=== PATIENT | male | born 1940 | race Hispanic/Latino ===

== ENCOUNTER 2016-12-22 11:24 | Emergency (ER) | payer MEDICARE ==
[~2016-12-22] VITALS: Ht 188 cm; Wt 114.9 kg
[2016-12-22] MEDS ORDERED: ASPI81TA85 PO (11:33)
[2016-12-22] MEDS ORDERED: ASPIRIN 81 MG CHEW TABLET PO ONE (12:00)
[2016-12-22] MEDS ORDERED: NITROGLYCERIN 0.4 MG SUBL TABLET SL PRN (12:00)
[2016-12-22 12:02] LABS: BASO % 0.4 % (0.0-1.0); EOS # 0.4 K/mm3 (0.0-0.50); EOS % 6.4 % (0.0-3.0); LARGE UNSTAINED CELL # 0.2 K/mm3 (0.0-0.4); LYMPH # 1.6 K/mm3 (1.5-4.5); LYMPH % 24.4 % (24.0-44.0); MEAN CORPUSCULAR HEMOGLOBIN 27.5 pg (27.0-33.0); MEAN CORPUSCULAR VOLUME 85.7 fl (80.0-96.0); MONO # 0.5 K/mm3 (0.0-0.8); MONO % 8.5 % (0.0-5.0); NEUTROPHILS # 3.3 K/mm3 (1.8-7.7); NEUTROPHILS % 57.3 % (36.0-66.0); PLATELET COUNT, AUTOMATED 221 k/mm3 (150-450); RED CELL DISTRIBUTION WIDTH 13.9 % (11.5-14.5); WHITE BLOOD COUNT 5.7 K/mm3 (4.0-10.0)
[2016-12-22 12:15] VITALS: BP 136/78
[2016-12-22 12:27] LABS: ANION GAP 5 MEQ/L (8-16); BLOOD UREA NITROGEN 13 MG/DL (7-18); CALCIUM LEVEL 8.6 MG/DL (8.8-10.2); CARBON DIOXIDE LEVEL 30 MEQ/L (21-32); CHLORIDE LEVEL 105 MEQ/L (98-107); CREATININE FOR GFR 1.12 MG/DL (0.70-1.30); GLOMERULAR FILTRATION RATE > 60.0 (>42); GLUCOSE, FASTING 84 MG/DL (83-110); POTASSIUM SERUM 4.3 MEQ/L (3.5-5.1); SODIUM LEVEL 140 MEQ/L (136-145)
--- NOTE | 2016-12-22 14:30 | REP ---
PORTABLE CHEST: AP portable view of the chest is performed. There are no prior studies. There is significant cardiomegaly. There is mild calcification and ectasia of the thoracic aorta. No acute infiltrate is seen. IMPRESSION: Significant cardiomegaly. No acute infiltrate. Signed by Gomez Pop MD 12/22/2016 03:23 P
[2016-12-22] MEDS ORDERED: ACETAMINOPHEN 325 MG TAB PO ONE (18:00)
[2016-12-22] MEDS ORDERED: ACETAMINOPHEN TAB 650MG DOSE (2X325MG) PO ONE (18:15)
[2016-12-22 19:02] VITALS: BP 136/69
--- NOTE | 2016-12-22 20:07 | ECGEPIP ---
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
--- NOTE | 2016-12-22 20:11 | ECGEPIP ---
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
--- NOTE | 2016-12-22 20:12 | ECGEPIP ---
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
== END 2016-12-22 19:14 | disposition home or self-care (01) ==
LOC: M ED 11:24
DX: R07.9 Chest pain, unspecified (principal); I51.7 Cardiomegaly; R94.31 Abnormal electrocardiogram [ECG] [EKG]; E78.5 Hyperlipidemia, unspecified; Z79.82 Long term (current) use of aspirin